=== PATIENT | female | born 1995 | race American Indian/Alaskan Native ===

== ENCOUNTER 2016-11-26 20:13 | Outpatient (CLI) | payer MEDICAID ==
[2016-11-26] MEDS ORDERED: LACTATED RINGERS 500 ML IV ONE (21:38)
[2016-11-26 21:39] VITALS: BP 123/68
--- NOTE | 2016-11-27 08:30 | Ultrasound Report ---
BIOPHYSICAL PROFILE (TWINS): INDICATION: well being. COMPARISON: None similar. TECHNIQUE: Transabdominal ultrasound with Doppler interrogation. BABY A: 2 - breathing movements 2 - movements 2 - posture and tone 2 - Qualitative amniotic fluid volume 8 - TOTAL SCORE OF POSSIBLE 8 Heart Rate (bpm) 147 BABY B: 2 - breathing movements 2 - movements 2 - posture and tone 2 - Qualitative amniotic fluid volume 8 - TOTAL SCORE OF POSSIBLE 8 Heart Rate (bpm) 141
== END 2016-11-26 21:47 | disposition home or self-care (01) ==
LOC: TRG 20:13
PROVIDERS: ATTEND Obstetrics & Gynecology
DX: O30.002 Twin pregnancy, unspecified number of placenta and unspecified number of amniotic sacs, second trimester (principal); O47.02 False labor before 37 completed weeks of gestation, second trimester; Z3A.15 15 weeks gestation of pregnancy
CPT/HCPCS: 59025; 76819; J7120

== ENCOUNTER 2017-01-16 13:35 | Outpatient (CLI) | payer MEDICAID ==
[2017-01-16 14:40] VITALS: BP 127/71
[2017-01-16] MEDS ORDERED: LACTATED RINGERS 500 ML IV ONE (15:03)
== END 2017-01-16 15:44 | disposition home or self-care (01) ==
LOC: TRG 13:35 → LD 13:36 → TRG 15:44
PROVIDERS: ATTEND Obstetrics & Gynecology
DX: O47.9 False labor, unspecified (principal); Z3A.00 Weeks of gestation of pregnancy not specified
CPT/HCPCS: 59025

== ENCOUNTER 2017-02-01 13:38 | Observation (INO) | payer MEDICAID ==
[2017-02-01 16:43] LABS: Hematocrit 26.1 % (30.3-42.9); Hemoglobin 8.4 gm/dl (10.1-14.3); Mean Corpuscular HGB Conc 32 % (30-34); Mean Corpuscular Hemoglobin 29 pg (28-32); Mean Corpuscular Volume 91 fl (79-97); Platelet Count 230 K/mm3 (140-440); Red Blood Count 2.88 M/mm3 (3.65-5.03); Red Cell Distribution Width 13.9 % (13.2-15.2); White Blood Count 7.9 K/mm3 (4.5-11.0)
[2017-02-01 17:04] LABS: Alanine Aminotransferase 7 units/L (7-56); Lactate Dehydrogenase 178 units/L (91-180); Uric Acid 4.6 mg/dL (3.5-7.6)
[2017-02-01 17:14] LABS: Bilirubin,Urine NEG (Negative); Blood,Urine NEG (Negative); Ketones,Urine TR mg/dL (Negative); Leukocyte Esterase,Urine SM (Negative); Nitrite,Urine NEG (Negative); Protein,Urine <15 mg/dL mg/dL (Negative)
[2017-02-01] MEDS ORDERED: LACTATED RINGERS 1,000 ML IV ONE (17:58)
--- NOTE | 2017-02-01 18:24 | History and Physical Report ---
<CASAADWOA Qing - Last Filed: 02/01/17 19:00> History of Present Illness Date of examination: 02/01/17 Chief complaint: Twin gestation @ 36 weeks, prev c/s x 2, c/o increased swelling in legs and elevated b/p. denies VIEYRA, visual changes or epigastric pain. Plan to admit for 24h urine. History of present illness: EDC 02/28/17 by second trimester u/s Past History : 3 Term Births: 2 Living Children: 2 Para: 2 # 1 Delivery date: 09/04/2014 Weeks Gestation: 40 Delivery type: Anesthesia type: epidural Delivery location: [facility] Sex: female weight: 6.69 Comments: failure to dilate # 2 Delivery date: 03/2016 Weeks Gestation: 39 Delivery type: Anesthesia type: epidural [place] [facility] [place] Sex: Female weight: 6-13 Past Medical History: Reviewed history from 09/04/2014 and no changes required: none Negative Past Medical History Past Surgical History: Reviewed history from 09/04/2014 and no changes required: (09/04/2014)/ 2015 Past Medical History Surgery (Non-support director): (09/04/2014)/ 2015 Abnormal PAP: negative RYAN Exposure: negative Infertility: negative Uterine Anomaly: negative Uterine Surgery (not C/S): negative Other Gynecologic Problems: negative Social Hx: Patient is single Unemployed Smoking History: Patient has never smoked. Infection History Partner hx. of genital herpes: no Rash, Viral, or Febrile illness since last LMP? no Genetic History Congenital Heart Defect: Mom: no Maxx Disease: Mom: no Thalassemia Mom: no Neural Tube Defect Mom: no Down's Syndrome Mom: no Anthony-Sachs Mom: no Sickle Cell Disease/Trait Mom: no Hemophilia Mom: no Muscular Dystrophy Mom: no Cystic Fibrosis Mom: no [place] Chorea Mom: no Mental Retardation Mom: no Fragile X Mom: no Other Genetic/Chromosomal Disorder Mom: no Child w/other defect Mom: no Enviromental Exposures Xray Exposure: no Medication, drug, or alcohol use since LMP: no Chemical/Other Exposure: no Exposure to Cat Liter: no Hx of Parvovirus (Fifth Disease): no Occupational Exposure to Children: none Active Medications (reviewed today): LABETALOL HCL TABS (LABETALOL HCL TABS) PLUS 27-1 MG TABS ( VIT-FE FUMARATE-FA) 1 po Current Allergies (reviewed today): No known allergies Past History - Obstetrical History Expected Date of Delivery: 02/28/17 Actual Gestation: 36 Week(s) 1 Day(s) : 3 Para: 2 Hx # Term Pregnancies: 2 Number of Pregnancies: 0 Spontaneous Abortions: 0 Induced : 0 Number of Living Children: 2 Medications and Allergies Allergies Allergy/AdvReac Type Severity Reaction Status Date / Time No Known Allergies Allergy Verified 08/31/14 17:43 Home Medications Medication Instructions Recorded Confirmed Last Taken Type Ibuprofen [Motrin 800 MG tab] 800 mg PO TID PRN #30 tablet 09/04/14 Unknown Rx oxyCODONE /ACETAMINOPHEN [Percocet 1 - 2 tab PO Q4HR PRN #30 tablet 09/04/14 Unknown Rx 5/325 mg] Pnv with Ca,No.72/Iron/FA [Pnv 1 tab PO DAILY 09/05/14 09/05/14 09/02/14 History Plus Multivit Tab] Labetalol [Normodyne TAB] 100 mg PO DAILY #30 tablet 09/06/14 Unknown Rx Betamethasone Dipropionate 1 applicatio TP BID #45 cream..g. 09/07/14 Unknown Rx [Betamethasone Dipropionate 0.05% Cream] Labetalol [Normodyne TAB] 100 mg PO BID #60 tablet 09/07/14 Unknown Rx Active Meds: Active Medications Lactated Ringer's (Lactated Ringers) 1,000 mls @ 999 mls/hr IV BOLUS ONE Stop: 02/01/17 18:58 Review of Systems All systems: negative - Vital Signs Vital signs: Vital Signs Pulse BP 81 129/87 02/01/17 14:44 02/01/17 14:44 Temp Pulse Resp BP Pulse Ox 79 137/84 02/01/17 18:15 02/01/17 18:15 - Physical Exam Breasts: Positive: normal Cardiovascular: Regular rate Lungs: Positive: Clear to auscultation, Normal air movement Abdomen: Positive: normal appearance, soft, normal bowel sounds Genitourinary (Female): Positive: normal external genitalia, normal perenium Vulva: both: normal Vagina: Positive: normal moisture Uterus: Positive: normal size, normal contour Anus/Rectum: Positive: normal perianal skin Extremities: Positive: edema (2+) Deep Tendon Reflex Grade: Normal +2 - Obstetrical FHR: auscultation normal, category 1 (x2 babies) Uterine Contraction Monitor Mode: External Cervical Dilatation: 0 Uterine Contraction Frequency (min): 2-4 Uterine Contraction Duration: 60 Uterine Contraction Pattern: Regular Uterine Tone Measurement Phase: Contraction Uterine Contraction Intensity: Mild Results Result Diagrams: 02/01/17 16:20 02/01/17 16:20 Abnormal lab results 02/01/17 02/01/17 02/01/17 Range/Units 16:20 16:20 16:45 RBC 2.88 L (3.65-5.03) M/mm3 Hgb 8.4 L (10.1-14.3) gm/dl Hct 26.1 L (30.3-42.9) % Creatinine 0.4 L (0.7-1.2) mg/dL Urine WBC (Auto) 7.0 H (0.0-6.0) /HPF U Epithel Cells (Auto) 27.0 H (0-13.0) /HPF All other labs normal. Assessment and Plan 21y/o @ 36+1 weeks, di/di twins, complicated by polyhydramnios and prev c/s x 2. She called the office several times with c/o increased BLE edema. She was sent in for pre-e evaluation. Labs over all good, trace protein noted. b/p's mostly 130/80's with some 140-150's/90's. Dr. Rosado consulted; plan for admission for 24h urine and monitoring of blood pressures. Patient verbalizes understanding of plan, all questions addressed. - Patient Problems (1) Previous section Current Visit: Yes Status: Acute (2) 36 weeks gestation of Current Visit: Yes Status: Acute (3) Anemia Current Visit: Yes Status: Acute QualifierTitle: Anemia type: iron deficiency Iron deficiency anemia type : I Vitamin B12 deficiency anemia type: V Folate deficiency anemia type: F Bone marrow failure anemia type: B Hemolytic anemia type: H Other causes of anemia: O Chronic kidney disease stage: C Plan to address problem: FE BID (4) Polyhydramnios affecting in third trimester Current Visit: Yes Status: Acute (5) Twin , twins dichorionic and diamniotic Current Visit: Yes Status: Acute QualifierTitle: Trimester: third trimester Qualified Code(s): O30.043 - Twin , dichorionic/diamniotic, third trimester <TONI ROSADO - Last Filed: 02/01/17 20:15> History of Present Illness Date of admission: 02/01/17 19:59 Medications and Allergies Active Meds: Active Medications Acetaminophen (Tylenol) 650 mg PO Q4H PRN PRN Reason: Pain MILD(1-3)/Fever >100.5/VIEYRA Al Hydrox/Mg Hydrox/Simethicone (Alum-Mag Hydrox-Simeth [id number]/5ml) 30 ml PO Q6H PRN PRN Reason: Indigestion Betamethasone Acet/Betameth SodPhos (Celestone Soluspan) 12 mg IM Q24HR UMESH Stop: 02/02/17 10:01 Diphenhydramine HCl (Benadryl) 25 mg PO Q6H PRN PRN Reason: Itching Docusate Sodium (Colace) 100 mg PO Q12H PRN PRN Reason: Constipation Ferrous Sulfate (Feosol) 325 mg PO BID UMESH Lactated Ringer's (Lactated Ringers) 1,000 mls @ 125 mls/hr IV DIRECT UMESH Magnesium Hydroxide (Milk Of Magnesia) 30 ml PO QHS PRN PRN Reason: Laxative Effect Multivitamins/Iron/Calcium ( Vitamin) 1 each PO QDAY UMESH Ondansetron HCl (Zofran) 4 mg IV Q6H PRN PRN Reason: Nausea And Vomiting Sodium Chloride (Deep Sea) 2 spray NS Q4H PRN PRN Reason: Congestion Zolpidem Tartrate (Ambien) 10 mg PO ONCE PRN PRN Reason: Sleep - Vital Signs Vital signs: Vital Signs Pulse BP 81 129/87 02/01/17 14:44 02/01/17 14:44 Temp Pulse Resp BP Pulse Ox 89 138/83 02/01/17 18:44 02/01/17 18:44 Results Result Diagrams: 02/01/17 16:20 02/01/17 16:20 Abnormal lab results 02/01/17 02/01/17 02/01/17 Range/Units 16:20 16:20 16:45 RBC 2.88 L (3.65-5.03) M/mm3 Hgb 8.4 L (10.1-14.3) gm/dl Hct 26.1 L (30.3-42.9) % Creatinine 0.4 L (0.7-1.2) mg/dL Urine WBC (Auto) 7.0 H (0.0-6.0) /HPF U Epithel Cells (Auto) 27.0 H (0-13.0) /HPF All other labs normal. Assessment and Plan - Patient Problems (1) 36 weeks gestation of Current Visit: Yes Status: Acute (2) Twin , twins dichorionic and diamniotic Current Visit: Yes Status: Acute Qualifiers: Trimester: third trimester Qualified Code(s): O30.043 - Twin , dichorionic/diamniotic, third trimester (3) Elevated blood pressure affecting in third trimester, antepartum Current Visit: Yes Status: Acute Plan to address problem: Preeclampsia vs GHTN explained, questions answered, plan of care discussed. She voiced understanding and agrees with plan of care (4) Previous section Current Visit: Yes Status: Acute (5) Anemia Current Visit: Yes Status: Acute Qualifiers: Anemia type: iron deficiency Iron deficiency anemia type: I Vitamin B12 deficiency anemia type: V Folate deficiency anemia type: F Bone marrow failure anemia type: B Hemolytic anemia type: H Other causes of anemia: O Chronic kidney disease stage: C (6) Polyhydramnios affecting in third trimester Current Visit: Yes Status: Acute (7) Sterilization Current Visit: Yes Status: Acute Plan to address problem: Consents signed 01/07/2017
[2017-02-01] MEDS ORDERED: TYLENOL PO PRN (18:29)
[2017-02-01] MEDS ORDERED: ALUM-MAG HYDROX-SIMETH 200-200-20MG/5ML PO PRN (18:29)
[2017-02-01] MEDS ORDERED: MILK OF MAGNESIA PO PRN (18:29)
[2017-02-01] MEDS ORDERED: BENADRYL PO PRN (18:29)
[2017-02-01] MEDS ORDERED: ZOFRAN IV PRN (18:29)
[2017-02-01] MEDS ORDERED: DEEP SEA NS PRN (18:29)
[2017-02-01] MEDS ORDERED: COLACE PO PRN (18:29)
[2017-02-01] MEDS ORDERED: AMBIEN PO PRN (18:29)
[2017-02-01] MEDS ORDERED: CELESTONE SOLUSPAN IM SCH (19:00)
[2017-02-01] MEDS: LACTATED RINGERS 1,000 ML IV SCH (21:10)
[2017-02-02] MEDS ORDERED: STADOL IV PRN (03:49)
[2017-02-02] MEDS: LACTATED RINGERS 1,000 ML IV SCH (06:28)
--- NOTE | 2017-02-02 09:39 | Progress Note ---
Subjective Date of service: 02/02/17 Principal diagnosis: elevated BP, twins, 36 weeks Interval history: Di/di twin gestation with polyhydramnios for both @ 36 weeks + 5d, prev c/s x 2 , c/o increased swelling in legs and elevated b/p. denies VIEYRA, visual changes or epigastric pain. She has c/o contractions off and on for several months. She was admitted yesterday for 24 hour urine which is in progress and should be completed this evening. Currently BPs are stable and running 130-135 over 75-85. All pre-E labs were wnl. She is scheduled for elective repeat c/s at 38 weeks which will most likely need to be changed to 37 weeks. Patient has no complaints at present, saying she has been delfino off and on but not currently. Plan is to await 24 hour urine and probably move c/s + btl date based on that-- she is currently scheduled on 02/14 wich is 38w +4d by her EDC of 02/25. Objective - Constitutional Vitals: Vital Signs - 12hr 02/01/17 02/01/17 02/01/17 21:59 22:04 22:09 Temperature Pulse Rate 78 81 76 Respiratory Rate Blood Pressure 138/79 O2 Sat by Pulse 100 100 100 Oximetry 02/01/17 02/01/17 02/02/17 22:14 22:19 02:36 Temperature Pulse Rate 72 79 96 H Respiratory Rate Blood Pressure 134/75 O2 Sat by Pulse 100 100 Oximetry 02/02/17 02/02/17 02/02/17 02:39 06:33 06:35 Temperature 98.6 F 98.2 F Pulse Rate 96 H 88 88 Respiratory 16 20 Rate Blood Pressure 134/75 130/86 130/86 O2 Sat by Pulse Oximetry 02/02/17 02/02/17 08:14 08:21 Temperature 97.8 F Pulse Rate 96 H 96 H Respiratory 18 Rate Blood Pressure 136/85 136/85 O2 Sat by Pulse Oximetry - Labs CBC & Chem 7: 02/01/17 16:20 02/01/17 16:20 Labs: Abnormal lab results 02/01/17 02/01/17 02/01/17 Range/Units 16:20 16:20 16:45 RBC 2.88 L (3.65-5.03) M/mm3 Hgb 8.4 L (10.1-14.3) gm/dl Hct 26.1 L (30.3-42.9) % Creatinine 0.4 L (0.7-1.2) mg/dL Urine WBC (Auto) 7.0 H (0.0-6.0) /HPF U Epithel Cells (Auto) 27.0 H (0-13.0) /HPF
[2017-02-02] MEDS: PRENATAL VITAMIN PO SCH (10:35)
[2017-02-02] MEDS: FEOSOL PO SCH (10:35)
[2017-02-03] MEDS: LACTATED RINGERS 1,000 ML IV SCH ×2 (00:25→09:53)
--- NOTE | 2017-02-03 10:42 | Discharge Summary ---
Providers - Providers Date of Admission: 02/01/17 19:59 Date of discharge: 02/03/17 Attending physician: TONI NEUMANN Primary care physician: JOSEPH REED Hospitalization Reason for admission: gest HTN, r/o Pre E Condition: Fair Pertinent studies: TP was 280 gm, Procedures: 24 hour urine, NST, labs, steroids Hospital course: Di/di twin gestation with polyhydramnios for both now @ 36 weeks + 3d, Her EDC is 02/28/17 prev c/s x 2, She was admitted with increased swelling in legs and elevated b/p. denying VIEYRA, visual changes or epigastric pain. She has c/o contractions off and on for several months. She was admitted 02/01for 24 hour urine which had 280 gm TP Currently BPs are stable and running 130-150 over 75-95. All pre-E labs were wnl. Steroid course was completed. She is scheduled for elective repeat c/s and BTL at 38 weeks which will be moved to later this week when she is 37 weeks Patient has no complaints at present, saying she has been delfino off and on but not currently. She was given very strict instructions to keep Saturday appointment in [facility] and to [facility] for any significant changes. Objective Disposition: DC-01 TO HOME OR SELFCARE - Discharge Diagnoses (1) Elevated blood pressure affecting in third trimester, antepartum Status: Acute (2) 36 weeks gestation of Status: Acute (3) Polyhydramnios affecting in third trimester Status: Acute (4) Twin , twins dichorionic and diamniotic Status: Acute Qualifiers: Trimester: third trimester Qualified Code(s): O30.043 - Twin , dichorionic/diamniotic, third trimester Core Measure Documentation - Palliative Care Palliative Care/ Comfort Measures: Not Applicable - Core Measures Any of the following diagnoses?: none Exam - Constitutional Vitals: Temp Pulse Resp BP Pulse Ox 98.5 F 87 16 136/89 98 02/03/17 07:58 02/03/17 10:33 02/03/17 07:58 02/03/17 10:33 02/03/17 08:58 General appearance: Present: no acute distress - EENT ENT: hearing intact - Respiratory Respiratory effort: normal - Cardiovascular Rhythm: regular - Extremities Extremity abnormal: edema (edema 2+/3+) - Abdominal General gastrointestinal: Present: soft, non-tender - Integumentary Integumentary: Present: clear, warm, dry - Psychiatric Psychiatric: appropriate mood/affect, intact judgment & insight, cooperative - Neurologic Neurologic: CNII-XII intact Plan Activity: other (mostly quiet bedrest at home) Weight Bearing Status: Full Weight Bearing Diet: regular Follow up with: JOSEPH REED MD [Primary Care Provider] - 48 Hours
[2017-02-03] MEDS ORDERED: CELESTONE SOLUSPAN IM ONE (11:00)
[2017-02-03] MEDS: PRENATAL VITAMIN PO SCH (11:41)
[2017-02-03] MEDS: FEOSOL PO SCH (11:41)
[2017-02-08 05:54] VITALS: BP 157/94
== END 2017-02-03 12:10 | disposition home or self-care (01) ==
LOC: TRG 13:38 → LD 19:59
PROVIDERS: ADMIT Obstetrics & Gynecology; ATTEND Obstetrics & Gynecology
DX: O40.3XX0 Polyhydramnios, third trimester, not applicable or unspecified (principal); O99.013 Anemia complicating pregnancy, third trimester; O13.3 Gestational [pregnancy-induced] hypertension without significant proteinuria, third trimester; O30.043 Twin pregnancy, dichorionic/diamniotic, third trimester; O12.03 Gestational edema, third trimester; Z3A.36 36 weeks gestation of pregnancy
CPT/HCPCS: 36415; 81001; 82565; 83615; 84156; 84450; 84460; 84550; 85027; 96360; 96361; 96372; G0378; J0702; J7120

== ENCOUNTER 2017-02-08 05:35 | Inpatient (IN) | payer MEDICAID ==
--- NOTE | 2017-02-07 22:20 | History and Physical Report ---
History of Present Illness Date of examination: 02/04/17 Chief complaint: IUP@37 weeks, twin gestation and GHTN who desires sterilization History of present illness: Past History : 3 Term Births: 2 Living Children: 2 Para: 2 # 1 Delivery date: 09/04/2014 Weeks Gestation: 40 Delivery type: Anesthesia type: epidural Delivery location: [facility] Infant Sex: female weight: 6.69 Comments: failure to dilate # 2 Delivery date: 03/2016 Weeks Gestation: 39 Delivery type: Anesthesia type: epidural [place] [facility] [place] Sex: Female weight: 6-13 Past Medical History: Reviewed history from 09/04/2014 and no changes required: none Negative Past Medical History Past Surgical History: Reviewed history from 09/04/2014 and no changes required: (09/04/2014)/ 2015 Past Medical History 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 Infection History Partner hx. of genital herpes: no Rash, Viral, or Febrile illness since last LMP? no Genetic History Congenital Heart Defect: Mom: no Maxx Disease: Mom: no Thalassemia Mom: no Neural Tube Defect Mom: no Down's Syndrome Mom: no Anthony-Sachs Mom: no Sickle Cell Disease/Trait Mom: no Hemophilia Mom: no Muscular Dystrophy Mom: no Cystic Fibrosis Mom: no [place] Chorea Mom: no Mental Retardation Mom: no Fragile X Mom: no Other Genetic/Chromosomal Disorder Mom: no Child w/other defect Mom: no Enviromental Exposures Xray Exposure: no Medication, drug, or alcohol use since LMP: no Chemical/Other Exposure: no Exposure to Cat Liter: no Hx of Parvovirus (Fifth Disease): no Occupational Exposure to Children: none Active Medications (reviewed today): LABETALOL HCL TABS (LABETALOL HCL TABS) PLUS 27-1 MG TABS ( VIT-FE FUMARATE-FA) 1 po Current Allergies (reviewed today): No known allergies Past History - Obstetrical History Expected Date of Delivery: 02/28/17 Actual Gestation: 37 Week(s) 0 Day(s) : 3 Medications and Allergies Allergies Allergy/AdvReac Type Severity Reaction Status Date / Time No Known Allergies Allergy Verified 08/31/14 17:43 Home Medications Medication Instructions Recorded Confirmed Last Taken Type Ibuprofen [Motrin 800 MG tab] 800 mg PO TID PRN #30 tablet 09/04/14 Unknown Rx oxyCODONE /ACETAMINOPHEN [Percocet 1 - 2 tab PO Q4HR PRN #30 tablet 09/04/14 Unknown Rx 5/325 mg] Pnv with Ca,No.72/Iron/FA [Pnv 1 tab PO DAILY 09/05/14 09/05/14 09/02/14 History Plus Multivit Tab] Labetalol [Normodyne TAB] 100 mg PO DAILY #30 tablet 09/06/14 Unknown Rx Betamethasone Dipropionate 1 applicatio TP BID #45 cream..g. 09/07/14 Unknown Rx [Betamethasone Dipropionate 0.05% Cream] Labetalol [Normodyne TAB] 100 mg PO BID #60 tablet 09/07/14 Unknown Rx Active Meds: Active Medications Carboprost Tromethamine (Hemabate) 250 mcg IM ONCE PRN PRN Reason: bleeding Citric Acid/Sodium Citrate (Bicitra) 30 ml PO ONCE ONE Stop: 02/08/17 05:31 Famotidine (Pepcid) 20 mg IV ONCE ONE Stop: 02/08/17 05:31 Cefazolin Sodium (Ancef/Sterile Water 2 Gm/20 Ml) 2 gm in 20 mls @ 80 mls/hr IV PREOP NR PRN Reason: Protocol Lactated Ringer's (Lactated Ringers) 1,000 mls @ 2,250 mls/hr IV PREOP UMESH Stop: 02/09/17 05:57 Oxytocin/Sodium Chloride (Pitocin/Ns 20 Unit/1000ml Drip) 20 units in 1,000 mls @ 0 mls/hr IV TITR UMESH PRN Reason: As Directed Metoclopramide HCl (Reglan) 10 mg IV ONCE ONE Stop: 02/08/17 05:31 Misoprostol (Cytotec) 800 mcg VG ONCE PRN PRN Reason: Uterine Bleeding Results All other labs normal. Assessment and Plan - Patient Problems (1) 37 weeks gestation of Status: Acute (2) Maternal care for scar from previous delivery Status: Acute Qualifiers: Previous delivery type: P Plan to address problem: Consent reviewed and signed . The risks and alternatives for this surgery were reviewed with the patient. She was informed of possible bleeding, infection, injury to bowel, bladder, ureters or other adjacent organs. The patient was instructed/informed the following: The normal length of hospital stay for this procedure. Nothing to eat or drink after midnight the evening prior to surgery. Pre-op instruction sheets given. Wound care instructions given. Infection precautions reviewed, patient to call for any signs or symptoms of infection. The usual discomforts associated with this procedure were detailed. Proper use of pain medicines was reviewed. Patient was given ample opportunity to have all her questions answered before signing informed consent. (3) Gestational hypertension Status: Acute Qualifiers: Trimester: T (4) Sterilization Status: Acute Plan to address problem: Risks of regret emphasized. Permanent and irreversible condition explained to patient. Pt verbalized understanding. Consent reviewed. The risks and alternatives to this surgery were reviewed with the patient. Risk of ectopic explained. Infection precautions reviewed, pt to call for any signs or symptoms of infection.Patient given ample opportunity to have all her questions answered before signing informed consent. Patient informed of possible bleeding, infection, injury to bowel, bladder, ureters or other adjacent organs. The usual discomforts associated with this procedure were detailed. Proper use of pain meds was reviewed.1% failure rate discussed. (5) Twin , twins dichorionic and diamniotic Status: Acute Qualifiers: Trimester: third trimester Qualified Code(s): O30.043 - Twin , dichorionic/diamniotic, third trimester
[~2017-02-08 05:35] MED LIST: ANCEF/STERILE WATER 2 GM/20 ML 2 GM/20 ML SYRINGE IV NR; BICITRA PO ONE; CYTOTEC VG PRN; HEMABATE IM PRN; PEPCID IV ONE; PITOCin/NS 20 UNIT/1000ML DRIP 20 UNITS/1,000 ML BAG IV SCH; REGLAN IV ONE
[2017-02-08] MEDS: LACTATED RINGERS 1,000 ML IV SCH ×2 (06:25→07:54)
[2017-02-08 06:47] LABS: Hematocrit 26.8 % (30.3-42.9); Hemoglobin 8.7 gm/dl (10.1-14.3); Mean Corpuscular HGB Conc 32 % (30-34); Mean Corpuscular Hemoglobin 29 pg (28-32); Mean Corpuscular Volume 89 fl (79-97); Platelet Count 238 K/mm3 (140-440); Red Blood Count 3.01 M/mm3 (3.65-5.03); Red Cell Distribution Width 14.6 % (13.2-15.2); White Blood Count 9.3 K/mm3 (4.5-11.0)
--- NOTE | 2017-02-08 07:24 | Anesthesia Consultation ---
Anesthesia Consult and Med Hx Date of service: 02/08/17 - Airway Anesthetic Teeth Evaluation: Good ROM Head & Neck: Adequate Mental/Hyoid Distance: Adequate Mallampati Class: Class II Intubation Access Assessment: Probably Good - Pre-Operative Health Status ASA Pre-Surgery Classification: ASA2 Proposed Anesthetic Plan: Epidural, Spinal - Pulmonary Hx Asthma: No COPD: No Hx Pneumonia: No - Cardiovascular System Hx Hypertension: Yes (gestational hypertention) - Central Nervous System Hx Seizures: No Hx Psychiatric Problems: No - Endocrine Hx Renal Disease: No Hx End Stage Renal Disease: No Hx Hypothyroidism: No Hx Hyperthyroidism: No - Hematic Hx Anemia: No Hx Sickle Cell Disease: No - Other Systems Hx Alcohol Use: No - Additional Comments Anesthesia Medical History Comments: twin gestation
--- NOTE | 2017-02-08 07:24 | Anesthesia Day of Surgery ---
Anesthesia Day of Surgery - Day of Surgery Patient Examined: Yes Patient H&P Reviewed: Yes Patient is NPO: Yes Beta Blockers: Yes
[2017-02-08] MEDS ORDERED: ZOFRAN IV PRN ×2 (07:30→10:00)
[2017-02-08] MEDS ORDERED: BENADRYL IV PRN (07:30)
[2017-02-08] MEDS ORDERED: NARCAN 0.4 MG/1 ML IV PRN ×2 (07:30→09:06)
[2017-02-08] MEDS ORDERED: MORPHINE ONE (07:35)
[2017-02-08 07:55] LABS: Alanine Aminotransferase 8 units/L (7-56); Albumin 3.4 g/dL (3.9-5); Albumin/Globulin Ratio 1.3 %; Alkaline Phosphatase 360 units/L (35-129); Anion Gap 16 mmol/L; Blood Urea Nitrogen 3 mg/dL (7-17); Calcium 7.9 mg/dL (8.4-10.2); Carbon Dioxide 24 mmol/L (22-30); Chloride 102.1 mmol/L (98-107); Glucose 73 mg/dL (65-100); Sodium 139 mmol/L (137-145); Total Protein 6.1 g/dL (6.3-8.2)
[2017-02-08] MEDS ORDERED: DILAUDID IV PRN (08:00)
[2017-02-08] MEDS ORDERED: SODIUM CHLORIDE FLUSH SYRINGE 10 ML IV PRN (08:00)
[2017-02-08 08:02] LABS: Potassium 2.9 mmol/L (3.6-5.0)
[2017-02-08] MEDS ORDERED: DILAUDID ONE (08:46)
[2017-02-08] MEDS ORDERED: XYLOCAINE MPF 2% ONE ×2 (08:51→09:04)
[2017-02-08] MEDS ORDERED: NACL 0.9% 1000 ML 1,000 ML ONE (08:54)
[2017-02-08] MEDS ORDERED: NEO SYNEPHRINE/NS Syringe(OR USE) IV ONE (09:00)
[2017-02-08] MEDS ORDERED: TUCKS PAD TP PRN (09:06)
[2017-02-08] MEDS ORDERED: SENOKOT PO PRN (09:06)
[2017-02-08] MEDS ORDERED: MYLICON PO PRN (09:06)
[2017-02-08] MEDS ORDERED: MORPHINE IV PRN ×2 (09:06)
[2017-02-08] MEDS ORDERED: LANSINOH TP PRN (09:06)
[2017-02-08] MEDS ORDERED: TYLENOL PR PRN (09:06)
[2017-02-08] MEDS ORDERED: PHENERGAN PR PRN (09:06)
--- NOTE | 2017-02-08 09:27 | Post Anesthesia Evaluation ---
- Post Anesthesia Evaluation Patient Participated: Yes Airway Patent: Yes Stable Respiratory Function: Yes Nausea/Vomiting: Yes Temp > 96.8F: Yes Pain Manageable: Yes Adequeate Hydration: Yes Anesthesia Complications: No Block Receding Appropriately: Yes Patient on Ventilator: No
--- NOTE | 2017-02-08 09:35 | Operative Report ---
Operative Report Operative Report: Date of procedure: 02/08/2017 Pre-operative diagnosis: 1. Intrauterine at 37 weeks 2. Twin gestation 3. Gestational hypertension 4. Polyhydramnios on both twins 5. Desires sterilization 6. Anemia of 7. Previous 2 desires repeat Post-operative diagnosis: 1. Intrauterine at 37 weeks 2. Twin gestation 3. Gestational hypertension 4. Polyhydramnios on both twins 5. Desires sterilization 6. Anemia of 7. Previous 2 desires repeat 8. Hypokalemia Procedure name(s): 1. Low transverse section 2. Bilateral tubal ligation, modified [place] Surgeon: Ange Rosado MD Ux Architect: Paige Goldberg CST Anesthesia: Epidural EBL: 800 mL Anesthesiologist: Dr. Jerrica Vicente Complications: None Findings: 1. Liveborn male infant. Weight 5 lbs. 16 oz. Apgars 8 at 1 minute 9 at 5 minutes. Cephalic presentation 2. Liveborn female infant. Weight 6 pounds. Apgars 8 at 1 minute 9 at 5 minutes. Double footling Breech presentation 3. Grossly normal uterus tubes and ovaries Procedure: After risks, benefits, and complications and alternatives and consequences, were discussed with patient, and she voiced her understanding and desired to proceed. Patient was taken to the OR, where epidural anesthesia was bolused. She was then placed in the left lateral tilt position, and prepped and draped in the usual sterile fashion. After timeout was performed, and an appropriate level of anesthesia was noted, a Pfannenstiel incision was made and extended to the fascia. The fascia was incised and extended in a lateral direction. The overlying fascia was sharply dissected away from the underlying rectus muscles in the superior-inferior direction. The midline was entered bluntly. The vesicouterine fold was incised and with blunt and sharp dissection the bladder flap was created. A transverse incision was made in the lower uterine segment and extended in the superior lateral direction with finger fractionation. Copious amount of clear fluid was noted. The was delivered from the cephalic position.The cord was doubly clamped and cut. The infant's mouth and nose were bulb suctioned. And the was given to the resuscitation team present. The membranes were ruptured on twin B. Copious clear fluid was noted. Infant was delivered from the double footling breech position. Nuchal cord 2 was noted. Cord was doubly clamped and cut. Mouth and nose were bulb suctioned. The placenta was manually extracted. The uterus was exteriorized and cleaned any products of conception and placental tissue. The incision was reapproximated using 0 Vicryl in a running interlocking stitch. The incision was reinforced with imbricating stitch of 0 Vicryl. Grossly normal tubes and ovaries were noted. Once confirmation was obtained from the patient to proceed with sterilization, the right tube was grasped with Nestor clamp and elevated. The tube was then doubly ligated and a loop with 0 Vicryl. That loop of tube was excised. Same procedure was performed on the left tube. Once hemostasis was noted, the uterus was allowed back into the pelvic cavity. The pelvis was irrigated with warm normal saline. Attention was turned to tubal segments again were noted to be hemostatic. Once hemostasis was noted, Surgicel was applied to the anterior surface of the incision and both tubes. Once hemostasis was noted, Interceed was applied to the anterior aspect of the uterus for adhesion prevention. Once hemostasis was noted, attention was turned to the rectus muscles. Once hemostasis was noted, the fascia was reapproximated using 0 Vicryl in a simple running stitch. Once hemostasis was noted, the incision was irrigated with normal saline. The incision was then reapproximated using 4-0 Vicryl on a Han needle in a subcuticular manner. Patient tolerated the procedure well she was taken to recovery room in stable condition. Counts were correct 3
[2017-02-08] MEDS ORDERED: APRESOLINE IV ONE ×2 (09:45→11:00)
[2017-02-08] MEDS ORDERED: TYLENOL PO PRN (10:00)
[2017-02-08] MEDS ORDERED: PITOCin/NS 20 UNIT/1000ML DRIP 20 UNITS/1,000 ML BAG IV SCH (10:00)
[2017-02-08] MEDS ORDERED: SODIUM CHLORIDE FLUSH SYRINGE 10 ML IV NR (10:00)
[2017-02-08] MEDS ORDERED: D5LR 1,000 ML IV SCH (10:00)
[2017-02-08] MEDS: KCL 10MEQ/100ML 10 MEQ/100 ML BAG IV SCH ×4 (10:08→13:31)
[2017-02-08 10:24] LABS: Bilirubin,Urine NEG (Negative); Blood,Urine NEG (Negative); Ketones,Urine TR mg/dL (Negative); Leukocyte Esterase,Urine NEG (Negative); Nitrite,Urine NEG (Negative); Protein,Urine <15 mg/dL mg/dL (Negative); Urobilinogen,Urine < 2.0 mg/dL (<2.0); WBC,Urine < 1.0 /HPF (0.0-6.0)
[2017-02-08] MEDS: TORADOL IV PRN ×2 (10:45→17:53)
[2017-02-08] MEDS: PROCARDIA XL PO SCH (11:11)
[2017-02-08] MEDS: ANCEF/NS 1 GM/50 ML 1 GM/50 ML BAG IV SCH (14:44)
[2017-02-08 19:32] LABS: Hematocrit 27.6 % (30.3-42.9); Hemoglobin 9.1 gm/dl (10.1-14.3)
[2017-02-08] MEDS ORDERED: MILK OF MAGNESIA PO PRN (22:00)
[2017-02-09] MEDS: TORADOL IV PRN ×2 (00:35→06:35)
[2017-02-09] MEDS: ANCEF/NS 1 GM/50 ML 1 GM/50 ML BAG IV SCH (01:00)
[2017-02-09] MEDS: PERCOCET 5/325 PO PRN ×2 (08:41→15:40)
[2017-02-09] MEDS: FEOSOL PO SCH ×2 (08:41→15:41)
--- NOTE | 2017-02-09 09:00 | Progress Note ---
Assessment and Plan patient doing well, no complaints. lochia scant, H&H 9.1/27.6 (asymptomatic for anemia), b/p 130-140's/60-80's, afebrile. repeat potassium level ordered. continue current postop pathway, possible d/c home tomorrow if stable. - Patient Problems (1) Gestational hypertension Current Visit: Yes Status: Acute Qualifiers: Trimester: T (2) delivery delivered Current Visit: No Status: Acute Subjective - Subjective Date of service: 02/09/17 Principal diagnosis: postop day #1 s/p repeat c/s, twins, GHTN Patient reports: appetite normal, voiding normally, pain well controlled, flatus , ambulating normally, no dizzy ambulation, no nauseated : doing well, bottle feeding Objective - Vital Signs Latest vital signs: Vital Signs Temp Pulse Resp BP Pulse Ox 02/09/17 04:05 98.4 F 99 H 18 133/78 02/09/17 00:00 99.7 F H 97 H 18 143/84 02/08/17 20:05 98.2 F 80 20 134/73 02/08/17 16:00 97.9 F 82 18 130/68 02/08/17 11:30 106 H 19 143/101 98 02/08/17 11:10 94 H 15 150/90 98 02/08/17 10:55 102 H 22 142/97 98 02/08/17 10:45 24 02/08/17 10:40 100 H 24 144/96 99 02/08/17 10:35 99 H 156/97 02/08/17 10:25 94 H 24 162/98 100 02/08/17 10:10 97 H 21 155/98 100 02/08/17 09:56 94 H 145/121 02/08/17 09:55 98 H 24 147/96 100 02/08/17 09:40 94 H 20 138/94 100 02/08/17 09:25 83 16 149/94 100 02/08/17 09:15 97 H 16 151/88 100 02/08/17 09:10 97.7 F 105 H 16 153/90 100 Intake and Output 02/08/17 02/09/17 02/09/17 22:59 06:59 14:59 Intake Total 650 360 Output Total 3400 1800 Balance -2750 -1440 Intake: IV 50 ANCEF/NS 1 GM/50 ML 1 gm 50 In 50 ml @ 100 mls/hr IV Q8H [facility] Rx#:[id number] Oral 600 360 Output: Urine 3400 1800 Indwelling Catheter 3400 Void 1800 Other: Total, Intake Amount 240 120 Total, Output Amount 1800 900 - Exam Breasts: Present: normal, Cardiovascular: Present: Regular rate Lungs: Present: Clear to auscultation, Normal air movement Abdomen: Present: normal appearance, soft Vulva: both: normal Uterus: Present: normal, firm, fundal height at umbilicus Extremities: Present: normal Deep Tendon Reflex Grade: Normal +2 Incision: Present: normal, dry, dressed - Labs Labs: Abnormal lab results 02/08/17 Range/Units 19:15 Hgb 9.1 L (10.1-14.3) gm/dl Hct 27.6 L (30.3-42.9) %
[2017-02-09] MEDS ORDERED: BOOSTRIX IM ONE (09:10)
[2017-02-09] MEDS: PROCARDIA XL PO SCH (09:22)
[2017-02-09] MEDS: MOTRIN PO PRN (15:40)
[2017-02-10] MEDS: PERCOCET 5/325 PO PRN ×4 (01:42→22:47)
[2017-02-10] MEDS: MOTRIN PO PRN (01:42)
[2017-02-10] MEDS: PROCARDIA XL PO SCH (09:15)
[2017-02-10] MEDS: FEOSOL PO SCH ×4 (09:15→22:49)
--- NOTE | 2017-02-10 10:53 | Progress Note ---
Assessment and Plan patient doing well, no complaints. desires d/c home. Lochia scant, incision D& I w/ no additional bleeding from yesterday, AF, b/p 140-150/80-90, no mullen, visual changes or epigastric pain. Patient may d/c home after shower if b/p is less than 140/90, f/u 1 week in office for b/p and incision check along with male infant's circ. All questions addressed, pt urges to call office for any changes in status. - Patient Problems (1) Gestational hypertension Current Visit: Yes Status: Acute Qualifiers: Trimester: T (2) delivery delivered Current Visit: No Status: Acute Subjective - Subjective Date of service: 02/10/17 Principal diagnosis: postop day #2 s/p repeat c/s w/BTL, twins, GHTN Patient reports: appetite normal, voiding normally, pain well controlled, flatus , ambulating normally, no dizzy ambulation, no nauseated [place]: doing well, bottle feeding Objective - Vital Signs Latest vital signs: Vital Signs Temp Pulse Resp BP 02/10/17 08:45 98.2 F 76 20 145/90 02/10/17 00:00 98.2 F 89 20 136/84 02/09/17 18:24 98.7 F 109 H 18 152/80 Intake and Output 02/09/17 02/10/17 02/10/17 22:59 06:59 14:59 Intake Total 120 120 Balance 120 120 Intake: Oral 120 120 Other: Total, Intake Amount 120 120 # Voids Void 1 1 - Exam Breasts: Present: normal Cardiovascular: Present: Regular rate Lungs: Present: Clear to auscultation, Normal air movement Abdomen: Present: normal appearance, soft Vulva: both: normal Uterus: Present: normal, firm, fundal height at umbilicus Extremities: Present: normal Deep Tendon Reflex Grade: Normal +2 Incision: Present: normal, dry, intact
--- NOTE | 2017-02-10 10:57 | Discharge Summary ---
Providers - Providers Date of Admission: 02/08/17 05:35 Date of discharge: 02/10/17 (desires d/c home today) Attending physician: TONI NEUMANN 02/08/17 09:06 Consult to [employer] [CONS] Routine Reason For Exam: Primary care physician: TONI NEUMANN Hospitalization Reason for admission: section Delivery: Procedure: bilateral tubal ligation, repeat low transverse Incision: normal, dry, intact Other procedures: none complications: none Discharge diagnosis: IUP at term delivered [place] baby: twins Hospital course: uncomplicated repeat c/s @ 37 weeks for GHTN Condition at discharge: Good Disposition: DC-01 TO HOME OR SELFCARE - Discharge Diagnoses (1) Gestational hypertension Status: Acute Qualifiers: Trimester: T (2) delivery delivered Status: Acute Plan - Discharge Medications Prescriptions: Docusate Sodium [Colace] 100 mg PO BID PRN #30 capsule PRN Reason: Constipation Ferrous Sulfate [Feosol 325 MG tab] 325 mg PO BID #90 tablet Ibuprofen [Motrin 800 MG tab] 800 mg PO TID PRN #30 tablet PRN Reason: Pain Lidocain2.5%/Prilocai2.5% [Emla] 5 gm TP ONCE #1 tube oxyCODONE /ACETAMINOPHEN [Percocet 5/325 mg] 1 - 2 tab PO Q4HR PRN #30 tablet PRN Reason: Pain - Provider Discharge Summary Activity: routine, no sex for 6 weeks, no heavy lifting 4 weeks, no strenuous exercise Diet: routine Instructions: routine Additional instructions: [] Smoking cessation referral if applicable(refer to patient education folder for contact #) [] Refer to [facility] Booklet Call your doctor immediately for: * Fever > 100.5 * Heavy vaginal bleeding ( >1 pad per hour) * Severe persistent headache * Shortness of breath * Reddened, hot, painful area to leg or breast * Drainage or odor from incision. * Keep incision clean and dry at all times and follow doctor's instructions regarding bathing/showering - Follow up plan Follow up: TONI NEUMANN MD [Primary Care Provider] - 7 Days (Congratulations! Please call [phone] to schedule your incision and blood pressure check and your son's circumcision. Bring EMLA cream to his appointment and await further instructions. Call for any questions or complaints of headache, visual changes or upper abd pain.)
[2017-02-11] MEDS: PERCOCET 5/325 PO PRN ×2 (04:51→11:50)
[2017-02-11] MEDS: MOTRIN PO PRN (11:50)
[2017-02-11] MEDS: FEOSOL PO SCH (11:50)
[2017-02-11] MEDS: PROCARDIA XL PO SCH (11:50)
[2017-02-11 12:50] VITALS: BP 144/90
== END 2017-02-11 12:26 | disposition home or self-care (01) | DRG 765 ==
LOC: APU 05:35 → OB 12:15
PROVIDERS: ADMIT Obstetrics & Gynecology; ATTEND Obstetrics & Gynecology
PROC: 10D00Z1 Extraction of Products of Conception, Low, Open Approach (ICD-10-PCS; principal; 2017-02-08)
PROC: 0UB70ZZ Excision of Bilateral Fallopian Tubes, Open Approach (ICD-10-PCS; 2017-02-08)
DX: O13.4 Gestational [pregnancy-induced] hypertension without significant proteinuria, complicating childbirth (principal); O40.3XX0 Polyhydramnios, third trimester, not applicable or unspecified; O30.003 Twin pregnancy, unspecified number of placenta and unspecified number of amniotic sacs, third trimester; O32.1XX2 Maternal care for breech presentation, fetus 2; O34.211 Maternal care for low transverse scar from previous cesarean delivery; O30.043 Twin pregnancy, dichorionic/diamniotic, third trimester; D64.9 Anemia, unspecified; O75.89 Other specified complications of labor and delivery; E87.6 Hypokalemia; O99.02 Anemia complicating childbirth; Z37.2 Twins, both liveborn; Z3A.37 37 weeks gestation of pregnancy; Z30.2 Encounter for sterilization; O69.81X0 Labor and delivery complicated by cord around neck, without compression, not applicable or unspecified
CPT/HCPCS: 36415; 80053; 81001; 83615; 84132; 84550; 85014; 85018; 85027; 86592; 86850; 86900; 86901; 88302; 88307; C1765; J0360; J0690; J1170; J1885; J2270; J2370; J2590; J2765; J3480; J7030; J7120; J7121